=== PATIENT | male | born 1945 | race Caucasian/White ===

== ENCOUNTER 2021-02-13 06:05 | Day surgery (SDC) | payer MEDICARE ==
[~2021-02-13] VITALS: Ht 172.7 cm; Wt 81.0 kg
[2021-02-13 06:42] VITALS: BP 126/79
[2021-02-13] MEDS ORDERED: SODIUM CHLORIDE 0.9% 1,000 ML IV SCH (07:00)
[2021-02-13 07:41] LABS: BASOPHILS % (AUTO) 0 % (0-1); EOSINOPHILS % (AUTO) 1 % (1-7); LYMPHOCYTES % (AUTO) 19 % (22-44); MEAN CORPUSCULAR HEMOGLOBIN 32.6 pg (27.5-34.5); MEAN CORPUSCULAR HGB CONC 34.7 g/dL (33.2-36.2); MEAN PLATELET VOLUME 7.8 fL (7.4-10.4); MONOCYTES % (AUTO) 11 % (2-9); NEUTROPHILS % (AUTO) 68 % (42-75); PLATELET COUNT 228 x10^3/uL (130-400); RED CELL DISTRIBUTION WIDTH 13.1 % (9.4-14.8)
[2021-02-13] MEDS ORDERED: PLEASE ENTER ALLERGIES MC SCH (08:00)
[2021-02-13] MEDS ORDERED: MIDAZOLAM 1 MG/ML, 5ML ONE ×2 (08:11)
[2021-02-13] MEDS ORDERED: FENTANYL PF 100 MCG/2ML ONE (08:11)
[2021-02-13] MEDS ORDERED: FLUMAZENIL 0.1 MG/1 ML, 5ML ONE (08:11)
[2021-02-13] MEDS ORDERED: NALOXONE 1 MG/ML, 2ML ONE (08:11)
== END 2021-02-13 10:00 | disposition home or self-care (01) ==
LOC: OUT 06:05
PROVIDERS: ATTEND Internal Medicine Hematology & Oncology
DX: C91.10 Chronic lymphocytic leukemia of B-cell type not having achieved remission (principal); D64.9 Anemia, unspecified; I10 Essential (primary) hypertension; K21.9 Gastro-esophageal reflux disease without esophagitis; Z79.01 Long term (current) use of anticoagulants; Z79.899 Other long term (current) drug therapy; Z87.891 Personal history of nicotine dependence; Z98.890 Other specified postprocedural states
CPT/HCPCS: 36415; 38222; 77012; 85025; 85060; 85097; 88237; 88264; 88280; 88305; 88311; 88313; 88341; 88342; 99156; 99157; J2250; J3010; J2310